=== PATIENT | male | born 1940 | race Caucasian/White ===

== ENCOUNTER 2022-03-18 18:08 | Emergency (ER) | payer MEDICARE, SELFPAY ==
--- NOTE | 2022-03-18 18:18 | ED.URI ---
HPI - URI/Sore Throat General Chief Complaint: Upper Respiratory Infection Stated Complaint: wants treated for covid Time Seen by Provider: 03/18/22 18:18 Source: patient and RN notes reviewed Mode of arrival: ambulatory Limitations: no limitations History of Present Illness HPI Narrative: 81-year-old male presents to the [facility] wanting treatment for COVID. Reports runny nose, scratchy throat along with coughing and itching since 10 PM last night. Patient reports that he felt febrile and his daughter checked it this morning and reports he had a fever. Reports he is only had 1 COVID-vaccine. Reports that he had a home COVID test that was positive. No treatment prior to arrival Related Data Home Medications Medication Instructions Recorded Confirmed amlodipine 2.5 mg tablet mg 03/18/22 clopidogrel 75 mg tablet mg 03/18/22 finasteride 5 mg tablet mg 03/18/22 hydrocodone 5 mg-acetaminophen 325 tablet 03/18/22 mg tablet losartan 50 mg tablet mg 03/18/22 metoprolol succinate 25 mg mg PO 03/18/22 tablet,extended release 24 hr pantoprazole 40 mg tablet,delayed mg PO 03/18/22 release rosuvastatin 40 mg tablet mg 03/18/22 Allergies Allergy/AdvReac Type Severity Reaction Status Date / Time lidocaine Allergy Other Verified 03/18/22 18:34 meperidine [From Demerol] Allergy Rash Verified 03/18/22 18:34 Penicillins Allergy Rash Verified 03/18/22 18:34 Review of Systems Review of Systems: All systems reviewed & are unremarkable except as noted in HPI and below Constitutional: Constitutional: Reports as per HPI, Denies chills and Reports fever(s) Eyes: Eyes: Reports no additional eye complaints ENT: Reports as per HPI, Reports nasal congestion and Reports sore throat Cardiovascular: Cardiovascular: Reports no additional cardiovascular complaints Respiratory: Respiratory: Reports as per HPI, Reports chest congestion and Reports cough Gastrointestinal: Gastrointestinal: Reports no additional gastrointestinal complaints Musculoskeletal: Musculoskeletal: Reports no additional musculoskeletal complaints Integumentary/Breasts: Skin/Breast: Reports system reviewed and no additional complaints, except as docu Neurologic: Reports system reviewed and no additional complaints, except as documented Psychiatric: Psychiatric: Reports no additional psychiatric complaints Allergic/Immunologic: Allergic/Immunologic: Reports no additional allergic/immunologic complaints [facility] Past Medical History Medical History (Updated 03/18/22 @ 18:57 by Angie Landa APRN) H/O gastroesophageal reflux (GERD) High cholesterol History of high blood pressure Surgical History Surgical History (Updated 03/18/22 @ 18:57 by Angie Landa APRN) H/O heart artery stent Social History Social History Living arrangements: with family Gender identity (if verbalized by the patient): Male Comments At the time of my signature, I reviewed and agree with the nursing past medical, surgical, social, and family history. There is no relevant family history pertinent to the patient complaint. Exam Const: General: healthy appearing, no acute distress and alert Nutritional Appearance: well nourished Orientation/consciousness: patient oriented x3 Limitations: no limitations HENMT: Head: normal to inspection Ears: external ears normal General nose exam: Normal external nose present and Nasal discharge present clear bilateral Eyes: General: appearance normal, both eyes and all related structures Pupils: Equal, round and reactive pupils present Neck: Neck: normal visual inspection, no lymphadenopathy and no meningeal signs Chest: Chest palpation & inspection: normal inspection of the chest Resp: Effort & Inspection: normal respiratory effort and no use of accessory muscles Auscultation: clear to auscultation bilaterally, no crackles, no rales, no rhonchi and no wheeze
[2022-03-18 18:24] VITALS: BP 170/71; PULSE 87; RESP 16; TEMP 37.4; O2SAT 97
== END 2022-03-18 18:55 | disposition home or self-care (01) ==
PROVIDERS: Emergency Provider Nurse Practitioner
DX: U07.1 COVID-19 (principal); K21.9 Gastro-esophageal reflux disease without esophagitis; E78.00 Pure hypercholesterolemia, unspecified; I10 Essential (primary) hypertension
CPT/HCPCS: 87426; 99203; C9803; G0463